=== PATIENT | female | born 1960 | race Asian ===

== ENCOUNTER → 2018-10-16 | Outpatient (CLI) | payer BC ==
[~2018-10-16] MED LIST: Ativan0.5 MG PO; CEPH500 PO; GLIP2.5ER; Lisinopril2.5 MG PO; Pyridium100 MG PO
[2018-10-16 10:22] LABS: Source, Urine Voided
[2018-10-16 10:33] LABS: Bacteria Not Seen /hpf; Red Blood Cells, Urine Rare /hpf (0-2); Squamous Epithelial Cells Rare /hpf (Few)
[2018-10-16 10:35] LABS: White Blood Cells, Urine Not Seen /hpf (0-5)
[2018-10-16 10:42] LABS: BASOPHILS ABSOLUTE AUTO 0.03 K/mm3 (0.00-0.23); BASOPHILS PERCENT AUTO 0 % (0-2); EOSINOPHILS ABSOLUTE AUTO 0.06 K/mm3 (0.00-0.68); EOSINOPHILS PERCENT AUTO 1 % (0-6); Hematocrit 47.3 % (33.0-51.0); Hemoglobin 15.4 g/dL (11.5-16.0); IMMATURE GRAN ABSOLUTE AUTO 0.02 K/mm3 (0.00-0.10); IMMATURE GRAN PERCENT AUTO 0 % (0-1); LYMPHOCYTES ABSOLUTE AUTO 2.52 K/mm3 (0.84-5.20); LYMPHOCYTES PERCENT AUTO 28 % (21-46); MONOCYTES ABSOLUTE AUTO 0.52 K/mm3 (0.16-1.47); MONOCYTES PERCENT AUTO 6 % (4-13); Mean Corpuscular HGB 29.6 pg (26.0-34.0); Mean Corpuscular HGB Conc 32.6 g/dL (31.5-36.5); Mean Corpuscular Volume 91 fL (80-100); Mean Platelet Volume 9.7 fL (9.1-12.4); NEUTROPHILS ABSOLUTE AUTO 5.82 K/mm3 (1.96-9.15); NEUTROPHILS PERCENT AUTO 65 % (41-73); Platelet Count 241 K/mm3 (150-400); RDW Coefficient Variation 12.7 % (11.7-14.2); RDW Standard Deviation 42.1 fL (35.1-46.3); White Blood Cell Count 8.97 K/mm3 (4.00-11.30)
[2018-10-16 10:59] LABS: Alanine Aminotransfer (ALT/SGP 35 U/L (12-78); Albumin, Blood 3.9 g/dL (3.4-5.0); Albumin/Globulin Ratio 0.8 (0.8-1.8); Alk Phos 112 U/L (40-126); Anion Gap 9 mmol/L (6-16); Aspartate Aminotrans (AST/SGOT 24 U/L (12-37); Bilirubin, Total 0.6 mg/dL (0.1-1.0); Blood Urea Nitrogen 11 mg/dL (8-24); Bun/Creatinine Ratio 16.7 (12.0-20.0); CO2, Blood 29 mmol/L (21-32); Calcium, Blood 9.6 mg/dL (8.5-10.1); Chloride, Blood 103 mmol/L (98-108); Creatinine, Blood 0.66 mg/dL (0.40-1.00); Globulin, Blood 4.9 g/dL (2.2-4.0); Glomerular Filtration Rate >60 (60-); Glucose, Blood 89 mg/dL (70-99); Potassium, Blood 4.2 mmol/L (3.5-5.5); Sodium, Blood 141 mmol/L (136-145); Thyroid Stimulating Hormone 1.829 uIU/mL (0.360-4.800); Total Protein, Blood 8.8 g/dL (6.4-8.2)
== END | disposition home or self-care (01) ==
LOC: LAB SHORT 10:20 → LAB EV 10:20
PROVIDERS: Physician Assistant
DX: R55 Syncope and collapse (principal)
CPT/HCPCS: 80053; 81015; 84443; 85025

== ENCOUNTER 2019-05-20 20:12 | Emergency (ER) | payer BC, SELFPAY ==
[~2019-05-20] VITALS: Ht 162.6 cm; Wt 81.7 kg
[2019-05-20 21:04] LABS: Source, Urine Clean Catch
[2019-05-20 21:08] LABS: Bilirubin, Urine Neg (Neg); Blood, Urine 5+ (Neg); Glucose Qualitative, Urine Neg (Neg); Ketones, Urine Neg (Neg); Leukocyte Esterase, Urine 3+ (Neg); Nitrite, Urine Neg (Neg); Protein, Urine Neg (Neg); Urobilinogen, Urine NORM (Normal)
[2019-05-20 21:17] LABS: Appearance, Urine Clear (Clear); Bacteria Many /hpf; Color, Urine Yellow (P-Yellow); Red Blood Cells, Urine 0-2 /hpf (0-2); Squamous Epithelial Cells Few /hpf (Few); White Blood Cells, Urine 50-100 /hpf (0-5)
[2019-05-20] MEDS ORDERED: CEPH500 PO (21:47)
[2019-05-20] MEDS ORDERED: Pyridium100 MG PO (21:47)
== END 2019-05-20 21:58 | disposition home or self-care (01) ==
LOC: ER 20:12
PROVIDERS: Physician Assistant
DX: N39.0 Urinary tract infection, site not specified (principal); E11.9 Type 2 diabetes mellitus without complications; Z79.899 Other long term (current) drug therapy
CPT/HCPCS: 81001; 87077; 87086; 87186; 99283

== ENCOUNTER 2019-05-25 14:21 | Day surgery (SDC) | payer BC, OTHER ==
[2019-05-25] MEDS ORDERED: ERTAPENEM1 GM IM (14:54)
== END 2019-05-25 15:11 | disposition home or self-care (01) ==
LOC: ATC 14:21
DX: N39.0 Urinary tract infection, site not specified (principal); B96.20 Unspecified Escherichia coli [E. coli] as the cause of diseases classified elsewhere
CPT/HCPCS: 96372; J1335

== ENCOUNTER 2019-05-26 10:12 | Day surgery (SDC) | payer BC, OTHER ==
[~2019-05-26 10:12] MED LIST changes: +ERTAPENEM1 GM IM
== END 2019-05-26 15:03 | disposition home or self-care (01) ==
LOC: ATC 10:12
DX: N39.0 Urinary tract infection, site not specified (principal)
CPT/HCPCS: 96372; J1335; J2001

== ENCOUNTER 2019-05-27 00:15 | Day surgery (SDC) | payer BC, OTHER ==
--- NOTE | 2019-05-27 14:25 | NUR ---
IVANZ: GIVEN IM, BAR CODE WILL NOT SCAN
== END 2019-05-27 14:31 | disposition home or self-care (01) ==
LOC: ATC 00:15
DX: N39.0 Urinary tract infection, site not specified (principal); B96.20 Unspecified Escherichia coli [E. coli] as the cause of diseases classified elsewhere
CPT/HCPCS: 96372; J1335; J2001

== ENCOUNTER 2019-05-28 00:14 | Day surgery (SDC) | payer BC, OTHER | END 2019-05-28 14:29 | disposition home or self-care (01) | LOC: ATC 00:14 | DX: N39.0 Urinary tract infection, site not specified (principal); B96.20 Unspecified Escherichia coli [E. coli] as the cause of diseases classified elsewhere | CPT/HCPCS: 96372; J1335 ==

== ENCOUNTER 2019-05-29 01:01 | Day surgery (SDC) | payer BC, OTHER | END 2019-05-29 15:14 | disposition home or self-care (01) | LOC: ATC 01:01 | DX: N39.0 Urinary tract infection, site not specified (principal); B96.20 Unspecified Escherichia coli [E. coli] as the cause of diseases classified elsewhere | CPT/HCPCS: 96372; J1335; J2001 ==

== ENCOUNTER 2019-05-30 00:31 | Day surgery (SDC) | payer BC, OTHER | END 2019-05-30 15:07 | disposition home or self-care (01) | LOC: ATC 00:31 | DX: N39.0 Urinary tract infection, site not specified (principal); B96.20 Unspecified Escherichia coli [E. coli] as the cause of diseases classified elsewhere | CPT/HCPCS: 96372; J1335; J2001 ==

== ENCOUNTER 2019-05-31 01:09 | Day surgery (SDC) | payer BC, OTHER | END 2019-05-31 15:35 | disposition home or self-care (01) | LOC: ATC 01:09 | DX: N39.0 Urinary tract infection, site not specified (principal); B96.20 Unspecified Escherichia coli [E. coli] as the cause of diseases classified elsewhere | CPT/HCPCS: 96372; J1335; J2001 ==

== ENCOUNTER 2019-06-01 00:35 | Day surgery (SDC) | payer BC, OTHER | END 2019-06-01 14:50 | disposition home or self-care (01) | LOC: ATC 00:35 | DX: N03.9 Chronic nephritic syndrome with unspecified morphologic changes (principal); B96.20 Unspecified Escherichia coli [E. coli] as the cause of diseases classified elsewhere | CPT/HCPCS: 96372; J1335; J2001 ==

== ENCOUNTER 2019-06-02 00:09 | Day surgery (SDC) | payer BC, OTHER | END 2019-06-02 15:05 | disposition home or self-care (01) | LOC: ATC 00:09 | DX: N39.0 Urinary tract infection, site not specified (principal); B96.20 Unspecified Escherichia coli [E. coli] as the cause of diseases classified elsewhere | CPT/HCPCS: 96372; J1335; J2001 ==

== ENCOUNTER 2019-06-03 00:15 | Day surgery (SDC) | payer BC, OTHER | END 2019-06-03 08:50 | disposition home or self-care (01) | LOC: ATC 00:15 | DX: N39.0 Urinary tract infection, site not specified (principal); B96.20 Unspecified Escherichia coli [E. coli] as the cause of diseases classified elsewhere | CPT/HCPCS: 96372; J1335 ==

== ENCOUNTER 2019-06-04 00:20 | Day surgery (SDC) | payer BC, OTHER | END 2019-06-04 16:00 | disposition home or self-care (01) | LOC: ATC 00:20 | DX: N39.0 Urinary tract infection, site not specified (principal); B96.20 Unspecified Escherichia coli [E. coli] as the cause of diseases classified elsewhere | CPT/HCPCS: 96372; J1335; J2001 ==

== ENCOUNTER 2019-06-05 00:23 | Day surgery (SDC) | payer BC, OTHER | END 2019-06-05 07:45 | disposition home or self-care (01) | LOC: ATC 00:23 | DX: N39.0 Urinary tract infection, site not specified (principal); B96.20 Unspecified Escherichia coli [E. coli] as the cause of diseases classified elsewhere | CPT/HCPCS: 96372; J1335 ==

== ENCOUNTER 2019-06-06 00:33 | Day surgery (SDC) | payer BC, OTHER | END 2019-06-06 08:15 | disposition home or self-care (01) | LOC: ATC 00:33 | DX: N39.0 Urinary tract infection, site not specified (principal); B96.20 Unspecified Escherichia coli [E. coli] as the cause of diseases classified elsewhere | CPT/HCPCS: 96372; J1335 ==

== ENCOUNTER 2019-06-07 14:51 | Day surgery (SDC) | payer BC, OTHER | END 2019-06-07 15:03 | disposition home or self-care (01) | LOC: ATC 14:51 | DX: N39.0 Urinary tract infection, site not specified (principal); B96.20 Unspecified Escherichia coli [E. coli] as the cause of diseases classified elsewhere | CPT/HCPCS: 96372; J1335 ==

== ENCOUNTER 2020-02-18 21:18 | Emergency (ER) | payer BC, OTHER ==
[~2020-02-18] VITALS: Ht 160 cm; Wt 83.5 kg
[2020-02-18] MEDS ORDERED: VALSARTAN40 MG PO (21:33)
[2020-02-18 22:08] LABS: BASOPHILS ABSOLUTE AUTO 0.03 K/mm3 (0.00-0.23); BASOPHILS PERCENT AUTO 0 % (0-2); EOSINOPHILS ABSOLUTE AUTO 0.11 K/mm3 (0.00-0.68); EOSINOPHILS PERCENT AUTO 1 % (0-6); Hematocrit 43.6 % (33.0-51.0); Hemoglobin 14.4 g/dL (11.5-16.0); IMMATURE GRAN ABSOLUTE AUTO 0.02 K/mm3 (0.00-0.10); IMMATURE GRAN PERCENT AUTO 0 % (0-1); LYMPHOCYTES ABSOLUTE AUTO 3.46 K/mm3 (0.84-5.20); LYMPHOCYTES PERCENT AUTO 41 % (21-46); MONOCYTES ABSOLUTE AUTO 0.59 K/mm3 (0.16-1.47); MONOCYTES PERCENT AUTO 7 % (4-13); Mean Corpuscular Volume 94 fL (80-100); Mean Platelet Volume 10.5 fL (9.1-12.4); NEUTROPHILS ABSOLUTE AUTO 4.32 K/mm3 (1.96-9.15); NEUTROPHILS PERCENT AUTO 51 % (41-73); Platelet Count 192 K/mm3 (150-400); RDW Coefficient Variation 12.5 % (11.7-14.2); RDW Standard Deviation 42.9 fL (35.1-46.3); Red Blood Cell Count 4.65 M/mm3 (3.80-5.20); White Blood Cell Count 8.53 K/mm3 (4.00-11.30)
[2020-02-18 22:25] LABS: Alanine Aminotransfer (ALT/SGP 52 U/L (12-78); Albumin, Blood 3.5 g/dL (3.4-5.0); Albumin/Globulin Ratio 0.8 (0.8-1.8); Alk Phos 101 U/L (50-136); Anion Gap 5 mmol/L (6-16); Aspartate Aminotrans (AST/SGOT 57 U/L (12-37); Bilirubin, Total 0.4 mg/dL (0.1-1.0); Blood Urea Nitrogen 11 mg/dL (8-24); CO2, Blood 24 mmol/L (21-32); Calcium, Blood 8.5 mg/dL (8.5-10.1); Chloride, Blood 111 mmol/L (98-108); Creatinine, Blood 0.65 mg/dL (0.40-1.00); Globulin, Blood 4.5 g/dL (2.2-4.0); Glomerular Filtration Rate >60 (60-); Glucose, Blood 174 mg/dL (70-99); Potassium, Blood 4.2 mmol/L (3.5-5.5); Sodium, Blood 140 mmol/L (136-145); Troponin I <0.015 ng/mL (0.000-0.040)
== END 2020-02-18 23:49 | disposition home or self-care (01) ==
LOC: ER 21:18
PROVIDERS: Emergency Medicine
DX: R00.2 Palpitations (principal)
CPT/HCPCS: 36415; 71046; 80053; 84484; 85025; 93005; 93010; 99285-25

== ENCOUNTER 2020-03-14 18:22 | Emergency (ER) | payer BC, OTHER ==
[~2020-03-14] VITALS: Ht 160 cm; Wt 83.5 kg
[~2020-03-14 18:22] MED LIST changes: +VALSARTAN40 MG PO
[2020-03-14 18:44] LABS: Source, Urine Clean Catch
[2020-03-14 18:48] LABS: Bilirubin, Urine Neg (Neg); Blood, Urine 3+ (Neg); Glucose Qualitative, Urine Neg (Neg); Ketones, Urine Neg (Neg); Leukocyte Esterase, Urine 1+ (Neg); Nitrite, Urine Neg (Neg); Protein, Urine Neg (Neg); Specific Gravity, Urine 1.005 (1.003-1.022); Urobilinogen, Urine NORM (Normal)
[2020-03-14 18:54] LABS: Appearance, Urine Clear (Clear); Color, Urine Pale Yellow (P-Yellow)
[2020-03-14 19:10] LABS: Bacteria Few /hpf; Red Blood Cells, Urine 0-2 /hpf (0-2); Squamous Epithelial Cells Rare /hpf (Few); White Blood Cells, Urine 0-2 /hpf (0-5)
[2020-03-14] MEDS ORDERED: Bactrim Ds Tab1 EACH PO (19:17)
== END 2020-03-14 19:26 | disposition home or self-care (01) ==
LOC: ER 18:22
PROVIDERS: Physician Assistant
DX: N39.0 Urinary tract infection, site not specified (principal)
CPT/HCPCS: 81001; 87086; 99283; A9270-GY

== ENCOUNTER 2021-04-12 11:02 | Emergency (ER) | payer BC ==
[~2021-04-12] VITALS: Ht 160 cm; Wt 81.7 kg
[~2021-04-12 11:02] MED LIST changes: +Bactrim Ds Tab1 EACH PO
[2021-04-12 11:48] LABS: BASOPHILS ABSOLUTE AUTO 0.03 K/mm3 (0.00-0.23); BASOPHILS PERCENT AUTO 0 % (0-2); EOSINOPHILS PERCENT AUTO 1 % (0-6); Hematocrit 46.9 % (33.0-51.0); Hemoglobin 15.6 g/dL (11.5-16.0); IMMATURE GRAN ABSOLUTE AUTO 0.03 K/mm3 (0.00-0.10); IMMATURE GRAN PERCENT AUTO 0 % (0-1); LYMPHOCYTES PERCENT AUTO 45 % (21-46); MONOCYTES ABSOLUTE AUTO 0.65 K/mm3 (0.16-1.47); MONOCYTES PERCENT AUTO 7 % (4-13); Mean Corpuscular HGB 30.6 pg (26.0-34.0); Mean Corpuscular HGB Conc 33.3 g/dL (31.5-36.5); Mean Corpuscular Volume 92 fL (80-100); NEUTROPHILS ABSOLUTE AUTO 4.49 K/mm3 (1.96-9.15); NEUTROPHILS PERCENT AUTO 47 % (41-73); Platelet Count 228 K/mm3 (150-400); RDW Coefficient Variation 12.8 % (11.7-14.2); RDW Standard Deviation 42.8 fL (35.1-46.3)
[2021-04-12 11:52] LABS: Alanine Aminotransfer (ALT/SGP 52 U/L (12-78); Albumin, Blood 4.1 g/dL (3.4-5.0); Albumin/Globulin Ratio 0.9 (0.8-1.8); Alk Phos 99 U/L (50-136); Anion Gap 8 mmol/L (6-16); Aspartate Aminotrans (AST/SGOT 37 U/L (12-37); Bilirubin, Total 0.5 mg/dL (0.1-1.0); Blood Urea Nitrogen 9 mg/dL (8-24); Bun/Creatinine Ratio 15.4 (12.0-20.0); CO2, Blood 25 mmol/L (21-32); Calcium, Blood 9.5 mg/dL (8.5-10.1); Chloride, Blood 106 mmol/L (98-108); Creatinine, Blood 0.58 mg/dL (0.40-1.00); Globulin, Blood 4.8 g/dL (2.2-4.0); Glomerular Filtration Rate >60 (60-); Glucose, Blood 85 mg/dL (70-99); Potassium, Blood 3.7 mmol/L (3.5-5.5); Sodium, Blood 139 mmol/L (136-145); Total Protein, Blood 8.9 g/dL (6.4-8.2)
[2021-04-12] MEDS ORDERED: PRED20 PO (14:08)
[2021-04-12] MEDS ORDERED: ACYC800 PO (14:08)
[2021-04-12] MEDS ORDERED: AKWA Tears15 ML LEFTEYE (14:08)
== END 2021-04-12 14:18 | disposition home or self-care (01) ==
LOC: ER 11:02
PROVIDERS: Physician Assistant
DX: G51.0 Bell's palsy (principal); E11.9 Type 2 diabetes mellitus without complications
CPT/HCPCS: 36415; 70450; 80053; 85025; 99284-25